=== PATIENT | female | born 1985 | race American Indian/Alaskan Native ===

== ENCOUNTER 2021-06-08 14:22 | Emergency (ER) | payer MEDICAID ==
[2021-06-08] MEDS ORDERED: SODIUM CHLORIDE 0.9% 1000 ML 1,000 ML IV ONE ×2 (14:47→18:13)
[2021-06-08] MEDS ORDERED: FAMOTIDINE 20 MG/2 ML INJ IV ONE (14:47)
[2021-06-08] MEDS ORDERED: MORPHINE 4 MG/1 ML INJ IV ONE ×2 (14:47→18:13)
[2021-06-08] MEDS ORDERED: ONDANSETRON 4 MG/2 ML INJ IV ONE ×2 (14:47→18:13)
--- NOTE | 2021-06-08 14:49 | Emergency Department Report ---
ED Abdominal Pain HPI - General Chief Complaint: Abdominal Pain Stated Complaint: ABDOMINAL PAIN Time Seen by Provider: 06/08/21 14:40 Source: EMS Mode of arrival: Wheelchair Limitations: No Limitations - History of Present Illness Initial Comments: 35-year-old female the past medical history. Cholecystectomy in 2009 presents to the hospital complaining of epigastric pain, nausea, vomiting, p.o. intolerance for the past 5 days. Patient vomiting intermittent specks of blood. Pain is moderate to severe, constant and worse with palpation. No alleviating factors reported. She denies fever or diarrhea. - Related Data Home Medications Medication Instructions Recorded Confirmed Last Taken Acetaminophen [Acetaminophen TAB] 1 - 2 tab PO Q6HR PRN 11/18/15 11/18/15 1 Week Ago ~11/11/15 Previous Rx's Medication Instructions Recorded Last Taken Type Ferrous Sulfate [Feosol 325 MG tab] 325 mg PO BID #60 tablet 11/19/15 Unknown Rx HYDROcodone/APAP 5-325 [[place] 2 each PO Q4H PRN #30 tablet 11/19/15 Unknown Rx 5-325 mg TAB] Ibuprofen [Motrin 800 MG tab] 800 mg PO Q8H PRN #30 tablet 11/19/15 Unknown Rx Vit-Fe Fumar-FA [ 1 each PO QDAY #30 tablet 11/19/15 Unknown Rx Vitamin] metroNIDAZOLE [Flagyl] 500 mg PO Q12HR 7 Days tab 04/15/18 Unknown Rx traMADoL [Ultram 50 MG tab] 50 mg PO Q6HR PRN #20 tablet 04/15/18 Unknown Rx Famotidine [Pepcid] 20 mg PO BID #20 tablet 06/08/21 Unknown Rx HYDROcodone/APAP 5-325 [[place] 1 each PO Q6HR PRN #14 tablet 06/08/21 Unknown Rx 5/325] Ondansetron [Zofran ODT TAB] 4 mg PO Q8HR PRN #20 tab.rapdis 06/08/21 Unknown Rx Allergies Allergy/AdvReac Type Severity Reaction Status Date / Time levofloxacin [From Levaquin] Allergy Hives Verified 06/08/21 14:27 ED Review of Systems ROS: Stated complaint: ABDOMINAL PAIN Other details as noted in HPI Comment: All other systems reviewed and negative ED Past Medical Hx - Past Medical History Hx Hypertension: No (grandmother, sister) Hx Congestive Heart Failure: No Hx Diabetes: No Hx Deep Vein Thrombosis: No Hx Renal Disease: No Hx Sickle Cell Disease: No Hx Headaches / Migraines: Yes Hx Seizures: No Hx Asthma: Yes (pt on inhaler) Hx COPD: No Hx HIV: No Additional medical history: 17 weeks by dates - Surgical History Hx Cholecystectomy: Yes (2008) - Social History Smoking Status: Current Every Day Smoker Substance Use Type: Marijuana - Medications Home Medications: Home Medications Medication Instructions Recorded Confirmed Last Taken Type Acetaminophen [Acetaminophen TAB] 1 - 2 tab PO Q6HR PRN 11/18/15 11/18/15 1 Week Ago History ~11/11/15 Ferrous Sulfate [Feosol 325 MG tab] 325 mg PO BID #60 tablet 11/19/15 Unknown Rx HYDROcodone/APAP 5-325 [[place] 2 each PO Q4H PRN #30 tablet 11/19/15 Unknown Rx 5-325 mg TAB] Ibuprofen [Motrin 800 MG tab] 800 mg PO Q8H PRN #30 tablet 11/19/15 Unknown Rx Vit-Fe Fumar-FA [ 1 each PO QDAY #30 tablet 11/19/15 Unknown Rx Vitamin] metroNIDAZOLE [Flagyl] 500 mg PO Q12HR 7 Days tab 04/15/18 Unknown Rx traMADoL [Ultram 50 MG tab] 50 mg PO Q6HR PRN #20 tablet 04/15/18 Unknown Rx Famotidine [Pepcid] 20 mg PO BID #20 tablet 06/08/21 Unknown Rx HYDROcodone/APAP 5-325 [[place] 1 each PO Q6HR PRN #14 tablet 06/08/21 Unknown Rx 5/325] Ondansetron [Zofran ODT TAB] 4 mg PO Q8HR PRN #20 tab.rapdis 06/08/21 Unknown Rx ED Physical Exam - General Limitations: No Limitations - Other Other exam information: General: Mild discomfort Head: Atraumatic Eyes: normal appearance ENT: Moist mucous membranes Neck: Normal appearance, no midline tenderness Chest: Clear to auscultation bilaterally CV: Regular rate and rhythm Abdomen: Soft, normal bowel sounds, epigastric tenderness, nondistended, no rebound or guarding Back: Normal inspection Extremity: Normal inspection, full range of motion Neuro: Alert O x 3, no facial asymmetry, speech clear, no gross motor sensory deficit Psych: Appropriate behavior Skin: No rash ED Course Vital Signs 06/08/21 06/08/21 06/08/21 14:24 15:49 16:00 Temperature 98.8 F Pulse Rate 60 72 Respiratory 20 12 25 H Rate Blood Pressure 128/63 Blood Pressure 143/75 [Right] O2 Sat by Pulse 100 98 Oximetry 06/08/21 06/08/21 06/08/21 16:16 16:30 16:33 Temperature Pulse Rate 53 L 56 L Respiratory 19 22 Rate Blood Pressure 128/63 128/63 Blood Pressure [Right] O2 Sat by Pulse 99 99 97 Oximetry 06/08/21 06/08/21 06/08/21 17:00 17:30 18:22 Temperature Pulse Rate 65 65 72 Respiratory 12 17 16 Rate Blood Pressure 128/63 128/63 Blood Pressure 152/88 [Right] O2 Sat by Pulse 100 98 100 Oximetry - Reevaluation(s) Reevaluation #1: 06/08/21 18:57 pt reports improved symptoms, she has received 1.5 L ns, zofran, morphine. Will d/c at completion of 2L bolus ED Medical Decision Making - Lab Data Result diagrams: 06/08/21 16:08 06/08/21 16:08 Lab Results 06/08/21 06/08/21 06/08/21 Range/Units 16:08 16:08 16:08 WBC 8.3 (4.5-11.0) K/mm3 RBC 3.74 (3.65-5.03) M/mm3 Hgb 12.6 (10.1-14.3) gm/dl Hct 37.2 (30.3-42.9) % MCV 100 H (79-97) fl MCH 34 H (28-32) pg MCHC 34 (30-34) % RDW 13.4 (13.2-15.2) % Plt Count 139 L (140-440) K/mm3 Lymph % (Auto) 37.0 H (13.4-35.0) % [place] % (Auto) 4.6 (0.0-7.3) % Eos % (Auto) 0.1 (0.0-4.3) % Baso % (Auto) 1.7 (0.0-1.8) % Lymph # (Auto) 3.1 (1.2-5.4) K/mm3 Stewart # (Auto) 0.4 (0.0-0.8) K/mm3 Eos # (Auto) 0.0 (0.0-0.4) K/mm3 Baso # (Auto) 0.1 (0.0-0.1) K/mm3 Seg Neutrophils % 56.6 (40.0-70.0) % Seg Neutrophils # 4.7 (1.8-7.7) K/mm3 Sodium 138 (137-145) mmol/L Potassium 4.4 (3.6-5.0) mmol/L Chloride 104.5 (98-107) mmol/L Carbon Dioxide 19 L (22-30) mmol/L Anion Gap 19 mmol/L BUN 13 (7-17) mg/dL Creatinine 0.6 (0.6-1.2) mg/dL Estimated GFR > 60 ml/min BUN/Creatinine Ratio 22 % Glucose 96 (65-100) mg/dL Calcium 8.9 (8.4-10.2) mg/dL Total Bilirubin 0.40 (0.1-1.2) mg/dL AST 31 (5-40) units/L ALT 18 (7-56) units/L Alkaline Phosphatase 55 (35-129) units/L Total Protein 6.2 L (6.3-8.2) g/dL Albumin 4.0 (3.9-5) g/dL Albumin/Globulin Ratio 1.8 % Lipase 13 (13-60) units/L HCG, Qual Negative (Negative) Urine Color (Yellow) Urine Turbidity (Clear) Urine pH (5.0-7.0) Ur Specific [place] (1.003-1.030) Urine Protein (Negative) mg/dL Urine Glucose (UA) (Negative) mg/dL Urine Ketones (Negative) mg/dL Urine Blood (Negative) Urine Nitrite (Negative) Urine Bilirubin (Negative) Urine Urobilinogen (<2.0) mg/dL Ur Leukocyte Esterase (Negative) Urine WBC (Auto) (0.0-6.0) /HPF Urine RBC (Auto) (0.0-6.0) /HPF 06/08/21 Range/Units Unknown WBC (4.5-11.0) K/mm3 RBC (3.65-5.03) M/mm3 Hgb (10.1-14.3) gm/dl Hct (30.3-42.9) % MCV (79-97) fl MCH (28-32) pg MCHC (30-34) % RDW (13.2-15.2) % Plt Count (140-440) K/mm3 Lymph % (Auto) (13.4-35.0) % Stewart % (Auto) (0.0-7.3) % Eos % (Auto) (0.0-4.3) % Baso % (Auto) (0.0-1.8) % Lymph # (Auto) (1.2-5.4) K/mm3 Stewart # (Auto) (0.0-0.8) K/mm3 Eos # (Auto) (0.0-0.4) K/mm3 Baso # (Auto) (0.0-0.1) K/mm3 Seg Neutrophils % (40.0-70.0) % Seg Neutrophils # (1.8-7.7) K/mm3 Sodium (137-145) mmol/L Potassium (3.6-5.0) mmol/L Chloride (98-107) mmol/L Carbon Dioxide (22-30) mmol/L Anion Gap mmol/L BUN (7-17) mg/dL Creatinine (0.6-1.2) mg/dL Estimated GFR ml/min BUN/Creatinine Ratio % Glucose (65-100) mg/dL Calcium (8.4-10.2) mg/dL Total Bilirubin (0.1-1.2) mg/dL AST (5-40) units/L ALT (7-56) units/L Alkaline Phosphatase (35-129) units/L Total Protein (6.3-8.2) g/dL Albumin (3.9-5) g/dL Albumin/Globulin Ratio % Lipase (13-60) units/L HCG, Qual (Negative) Urine Color Yellow (Yellow) Urine Turbidity Clear (Clear) Urine pH 6.0 (5.0-7.0) Ur Specific [place] 1.027 (1.003-1.030) Urine Protein 30 mg/dl (Negative) mg/dL Urine Glucose (UA) Neg (Negative) mg/dL Urine Ketones 80 (Negative) mg/dL Urine Blood Neg (Negative) Urine Nitrite Neg (Negative) Urine Bilirubin Neg (Negative) Urine Urobilinogen 2.0 (<2.0) mg/dL Ur Leukocyte Esterase Neg (Negative) Urine WBC (Auto) < 1.0 (0.0-6.0) /HPF Urine RBC (Auto) < 1.0 (0.0-6.0) /HPF - Radiology Data Radiology results: report reviewed CT ABDOMEN AND PELVIS WITH CONTRAST INDICATION / CLINICAL INFORMATION: Nausea and vomiting.. TECHNIQUE: Axial CT images were obtained through the abdomen and pelvis after 100 cc Omnipaque [address] scans at this location are performed using CT dose reduction for ALARA by means of automated exposure control. COMPARISON: None available. FINDINGS: LOWER CHEST: No significant abnormality of the imaged chest. LIVER: No significant abnormality. GALLBLADDER: Cholecystectomy. BILE DUCTS: No significant abnormality. SPLEEN: No significant abnormality. PANCREAS: No significant abnormality. ADRENALS: No significant abnormality. RIGHT KIDNEY / URETER: Multiple small 2 to 3 mm nonobstructing nephroliths. Right kidney otherwise unremarkable. LEFT KIDNEY / URETER: Small 1 to 2 mm nephroliths. No additional urolithiasis. STOMACH / DUODENUM / SMALL BOWEL: No significant abnormality. COLON: No significant abnormality. APPENDIX: No significant abnormality. PERITONEUM: No free air or free fluid are present within the abdomen or pelvis. LYMPH NODES: No significant adenopathy. AORTA / ARTERIES: No significant abnormality. IVC / VEINS: No significant abnormality. URINARY BLADDER: No significant abnormality. REPRODUCTIVE ORGANS: No significant abnormality. ADDITIONAL ABDOMINAL/PELVIC FINDINGS: None. SKELETAL SYSTEM: No significant abnormality. IMPRESSION: 1. Bilateral nonobstructing nephroliths. No acute findings within the abdomen or pelvis. - Medical Decision Making 35-year-old female presents to the hospital with epigastric pain, nausea, and vomiting. Labs unremarkable. CT abdomen pelvis unremarkable. Urine suggestive of dehydration given elevated ketones. Patient treated with IV fluids, pain medication, antiemetic, H2 sylvie with improvement of symptoms. She will be discharged with symptomatic treatment Critical Care Time: No Critical care attestation.: If time is entered above; I have spent that time in minutes in the direct care of this critically ill patient, excluding procedure time. ED Disposition Clinical Impression: Gastritis, Nausea and vomiting, Kidney stone Disposition: HOME / SELF CARE / HOMELESS Is pt being admited?: No Does the pt Need Aspirin: No Condition: Stable Instructions: Abdominal Pain (ED), Gastritis, Adult, Nausea and Vomiting, Adult, Kidney Stones, [id number] Additional Instructions: Take the medication as prescribed. Follow-up with your doctor or doctor/clinic provided. Return if symptoms worsen as indicated by your discharge instructions. Prescriptions: HYDROcodone/APAP 5-325 [[place] 5/325] 1 each PO Q6HR PRN #14 tablet PRN Reason: Pain Famotidine [Pepcid] 20 mg PO BID #20 tablet Ondansetron [Zofran ODT TAB] 4 mg PO Q8HR PRN #20 tab.rapdis PRN Reason: Nausea And Vomiting Referrals: PRIMARY CARE, [Primary Care Provider] - 3-5 Days DONALD JALLOH MD [Staff Physician] - 3-5 Days [facility] [Provider Group] - 3-5 Days Time of Disposition: 19:00
[2021-06-08 16:34] LABS: Bilirubin,Urine NEG (Negative); Blood,Urine NEG (Negative); Color,Urine Yellow (Yellow)
[2021-06-08 16:37] LABS: RBC,Urine < 1.0 /HPF (0.0-6.0); WBC,Urine < 1.0 /HPF (0.0-6.0)
[2021-06-08 16:40] LABS: Basophils # (Auto) 0.1 K/mm3 (0.0-0.1); Basophils % (Auto) 1.7 % (0.0-1.8); Eosinophils % (Auto) 0.1 % (0.0-4.3); Hematocrit 37.2 % (30.3-42.9); Hemoglobin 12.6 gm/dl (10.1-14.3); Lymphocytes # (Auto) 3.1 K/mm3 (1.2-5.4); Mean Corpuscular HGB Conc 34 % (30-34); Mean Corpuscular Volume 100 fl (79-97); Monocytes # (Auto) 0.4 K/mm3 (0.0-0.8); Monocytes % (Auto) 4.6 % (0.0-7.3); Red Blood Count 3.74 M/mm3 (3.65-5.03); Red Cell Distribution Width 13.4 % (13.2-15.2)
[2021-06-08 16:42] LABS: Platelet Count 139 K/mm3 (140-440)
[2021-06-08 17:07] LABS: Alanine Aminotransferase 18 units/L (7-56); Blood Urea Nitrogen 13 mg/dL (7-17); Calcium 8.9 mg/dL (8.4-10.2); Hemolysis Index 177
[2021-06-08 17:25] LABS: BUN/Creatinine Ratio 22
--- NOTE | 2021-06-08 18:18 | Cat Scan Report ---
CT ABDOMEN AND PELVIS WITH CONTRAST INDICATION / CLINICAL INFORMATION: Nausea and vomiting.. TECHNIQUE: Axial CT images were obtained through the abdomen and pelvis after 100 cc Omnipaque [address] scans at this location are performed using CT dose reduction for ALARA by means of automated exposure control. COMPARISON: None available. FINDINGS: LOWER CHEST: No significant abnormality of the imaged chest. LIVER: No significant abnormality. GALLBLADDER: Cholecystectomy. BILE DUCTS: No significant abnormality. SPLEEN: No significant abnormality. PANCREAS: No significant abnormality. ADRENALS: No significant abnormality. RIGHT KIDNEY / URETER: Multiple small 2 to 3 mm nonobstructing nephroliths. Right kidney otherwise un remarkable. LEFT KIDNEY / URETER: Small 1 to 2 mm nephroliths. No additional urolithiasis. STOMACH / DUODENUM / SMALL BOWEL: No significant abnormality. COLON: No significant abnormality. APPENDIX: No significant abnormality. PERITONEUM: No free air or free fluid are present within the abdomen or pelvis. LYMPH NODES: No significant adenopathy. AORTA / ARTERIES: No significant abnormality. IVC / VEINS: No significant abnormality. URINARY BLADDER: No significant abnormality. REPRODUCTIVE ORGANS: No significant abnormality. ADDITIONAL ABDOMINAL/PELVIC FINDINGS: None. SKELETAL SYSTEM: No significant abnormality. IMPRESSION: 1. Bilateral nonobstructing nephroliths. No acute findings within the abdomen or pelvis. Signer Name: Art Nobles II, MD Signed: 06/08/2021 6:13 PM Workstation Name: [id number]
[2021-06-08 19:35] VITALS: BP 133/74
== END 2021-06-08 20:03 | disposition home or self-care (01) ==
LOC: ED 14:22
DX: K29.70 Gastritis, unspecified, without bleeding (principal); R11.2 Nausea with vomiting, unspecified; N20.0 Calculus of kidney; F17.200 Nicotine dependence, unspecified, uncomplicated
CPT/HCPCS: 36415; 74177; 80053; 81001; 83690; 84703; 85025; 96361; 96374; 96375; 96376; 99284; J2270; J2405; J3490; J7030; Q9967; Q0162

== ENCOUNTER 2021-06-09 13:38 | Emergency (ER) | payer MEDICAID ==
[2021-06-09] MEDS ORDERED: PROCHLORPERAZINE EDISYLATE 10 MG/2 ML VIAL IV ONE (14:37)
[2021-06-09] MEDS ORDERED: PANTOPRAZOLE 40 MG INJ IV ONE (14:37)
[2021-06-09] MEDS ORDERED: MORPHINE 4 MG/1 ML INJ IV ONE (14:42)
--- NOTE | 2021-06-09 15:25 | Emergency Department Report ---
ED N/V/D HPI - General Chief complaint: Nausea/Vomiting/Diarrhea Stated complaint: VOMITING Time Seen by Provider: 06/09/21 14:22 Source: patient Mode of arrival: Ambulatory Limitations: No Limitations - History of Present Illness Initial comments: 36-year-old female presents to the emergency department for evaluation of nausea vomiting and epigastric pain that she states restarted today around noon time. She states that she was seen in the emergency department yesterday for same complaint and was sent home with Zofran for nausea but it did not improve her nausea today. Per evaluation of her previous chart, she was diagnosed with bilateral kidney stones and gastritis and sent home with nausea medication along with pain medication. She continues to deny fever, diarrhea, dysuria. MD complaint: nausea, vomiting, abdominal pain -: Gradual, hour(s) (3) Associated Abdominal Pain: Yes Location: epigastric Radiation: none Severity: severe Pain Scale: 10 Quality: aching, other (Burning) Consistency: constant Associated Symptoms: nausea/vomiting. denies: myalgias, chest pain, cough, diaphoresis, fever/chills, headaches, loss of appetite, malaise, rash, dysuria, shortness of breath, syncope, weakness - Related Data Home Medications Medication Instructions Recorded Confirmed Last Taken Acetaminophen [Acetaminophen TAB] 1 - 2 tab PO Q6HR PRN 11/18/15 11/18/15 1 Week Ago ~11/11/15 Previous Rx's Medication Instructions Recorded Last Taken Type Ferrous Sulfate [Feosol 325 MG tab] 325 mg PO BID #60 tablet 11/19/15 Unknown Rx HYDROcodone/APAP 5-325 [[place] 2 each PO Q4H PRN #30 tablet 11/19/15 Unknown Rx 5-325 mg TAB] Ibuprofen [Motrin 800 MG tab] 800 mg PO Q8H PRN #30 tablet 11/19/15 Unknown Rx Vit-Fe Fumar-FA [ 1 each PO QDAY #30 tablet 11/19/15 Unknown Rx Vitamin] metroNIDAZOLE [Flagyl] 500 mg PO Q12HR 7 Days tab 04/15/18 Unknown Rx traMADoL [Ultram 50 MG tab] 50 mg PO Q6HR PRN #20 tablet 04/15/18 Unknown Rx Famotidine [Pepcid] 20 mg PO BID #20 tablet 06/08/21 Unknown Rx HYDROcodone/APAP 5-325 [[place] 1 each PO Q6HR PRN #14 tablet 06/08/21 Unknown Rx 5/325] Ondansetron [Zofran ODT TAB] 4 mg PO Q8HR PRN #20 tab.rapdis 06/08/21 Unknown Rx Prochlorperazine [Compro] 25 mg RC Q8HR PRN #15 suppositor 06/09/21 Unknown Rx Allergies Allergy/AdvReac Type Severity Reaction Status Date / Time levofloxacin [From Levaquin] Allergy Hives Verified 06/08/21 14:27 ED Review of Systems ROS: Stated complaint: VOMITING Other details as noted in HPI Comment: All other systems reviewed and negative Constitutional: denies: chills, diaphoresis, fever, malaise, weakness Eyes: denies: eye pain ENT: denies: ear pain Respiratory: denies: cough, shortness of breath, SOB with exertion, SOB at rest Cardiovascular: denies: chest pain, palpitations, dyspnea on exertion, syncope, paroxysmal nocturnal dyspnea Endocrine: no symptoms reported Gastrointestinal: abdominal pain, nausea, vomiting. denies: diarrhea, constipation, hematemesis, melena, hematochezia Genitourinary: denies: urgency, dysuria, frequency, hematuria, discharge Musculoskeletal: denies: back pain, joint swelling, myalgia Skin: denies: rash, lesions, change in color, change in hair/nails, pruritus Neurological: denies: headache, weakness, numbness, paresthesias, confusion, abnormal gait Psychiatric: denies: anxiety Hematological/Lymphatic: denies: easy bleeding, easy bruising ED Past Medical Hx - Past Medical History Hx Hypertension: No (grandmother, sister) Hx Congestive Heart Failure: No Hx Diabetes: No Hx Deep Vein Thrombosis: No Hx Renal Disease: No Hx Sickle Cell Disease: No Hx Headaches / Migraines: Yes Hx Seizures: No Hx Asthma: Yes (pt on inhaler) Hx COPD: No Hx HIV: No Additional medical history: 17 weeks by dates - Surgical History Hx Cholecystectomy: Yes (2008) - Social History Smoking Status: Current Every Day Smoker Substance Use Type: Marijuana - Medications Home Medications: Home Medications Medication Instructions Recorded Confirmed Last Taken Type Acetaminophen [Acetaminophen TAB] 1 - 2 tab PO Q6HR PRN 11/18/15 11/18/15 1 Week Ago History ~11/11/15 Ferrous Sulfate [Feosol 325 MG tab] 325 mg PO BID #60 tablet 11/19/15 Unknown Rx HYDROcodone/APAP 5-325 [[place] 2 each PO Q4H PRN #30 tablet 11/19/15 Unknown Rx 5-325 mg TAB] Ibuprofen [Motrin 800 MG tab] 800 mg PO Q8H PRN #30 tablet 11/19/15 Unknown Rx Vit-Fe Fumar-FA [ 1 each PO QDAY #30 tablet 11/19/15 Unknown Rx Vitamin] metroNIDAZOLE [Flagyl] 500 mg PO Q12HR 7 Days tab 04/15/18 Unknown Rx traMADoL [Ultram 50 MG tab] 50 mg PO Q6HR PRN #20 tablet 04/15/18 Unknown Rx Famotidine [Pepcid] 20 mg PO BID #20 tablet 06/08/21 Unknown Rx HYDROcodone/APAP 5-325 [[place] 1 each PO Q6HR PRN #14 tablet 06/08/21 Unknown Rx 5/325] Ondansetron [Zofran ODT TAB] 4 mg PO Q8HR PRN #20 tab.rapdis 06/08/21 Unknown Rx Prochlorperazine [Compro] 25 mg RC Q8HR PRN #15 suppositor 06/09/21 Unknown Rx ED Physical Exam - General Limitations: No Limitations General appearance: alert, in no apparent distress - Head Head exam: Present: atraumatic, normocephalic - Eye Eye exam: Present: normal appearance. Absent: conjunctival injection - Neck Neck exam: Present: normal inspection, full ROM. Absent: tenderness - Respiratory Respiratory exam: Present: normal lung sounds bilaterally. Absent: respiratory distress, wheezes, rales, rhonchi, stridor, chest wall tenderness, accessory muscle use - Cardiovascular Cardiovascular Exam: Present: regular rate, normal heart sounds - GI/Abdominal GI/Abdominal exam: Present: soft, tenderness (Epigastric area), normal bowel sounds. Absent: distended, guarding, rebound, rigid - Extremities Exam Extremities exam: Present: normal inspection - Back Exam Back exam: Present: normal inspection, full ROM. Absent: CVA tenderness (R), CVA tenderness (L) - Neurological Exam Neurological exam: Present: alert, oriented X3 - Psychiatric Psychiatric exam: Present: normal affect, normal mood - Skin Skin exam: Present: warm, dry, intact, normal color ED Course Vital Signs 06/09/21 14:10 Temperature 98.2 F Pulse Rate 62 Respiratory 18 Rate Blood Pressure 147/60 [Right] O2 Sat by Pulse 100 Oximetry - Reevaluation(s) Reevaluation #1: 06/09/21 15:48 Patient states that nausea vomiting and abdominal pain are not improved, but she was found resting comfortably in recliner asleep and had to be shaken several times before she woke up. No acute distress noted. ED Medical Decision Making - Medical Decision Making 36-year-old female presents to the emergency department for evaluation of nausea vomiting and epigastric pain that she states restarted today around noon time. She states that she was seen in the emergency department yesterday for same complaint and was sent home with Zofran for nausea but it did not improve her nausea today. Per evaluation of her previous chart, she was diagnosed with bilateral kidney stones and gastritis and sent home with nausea medication along with pain medication. She continues to deny fever, diarrhea, dysuria. Patient looks more comfortable. No additional labs or imaging performed because patient had CAT scan yesterday that showed bilateral kidney stones with no other acute abnormalities. Labs and UA were without gross abnormalities yesterday. Patient continues to deny fever and dysuria. She was advised to continue medications as started yesterday and she was given Compazine suppositories to use as needed for nausea not improved with Zofran ODT. Patient understands plan of care. Critical care attestation.: If time is entered above; I have spent that time in minutes in the direct care of this critically ill patient, excluding procedure time. ED Disposition Clinical Impression: Epigastric pain Nausea & vomiting Qualifiers: Vomiting type: unspecified Qualified Code(s): R11.2 - Nausea with vomiting, unspecified Disposition: 01 HOME / SELF CARE / HOMELESS Is pt being admited?: No Does the pt Need Aspirin: No Condition: Stable Instructions: Gastritis, Adult, [id number], Nausea and Vomiting, Adult, [id number] Additional Instructions: Take medications as previously prescribed. Use Compazine suppositories as needed for nausea vomiting if Zofran tablets not effective. Follow-up with primary care provider. Return to the emergency department if worsening symptoms or no improvement. Prescriptions: Prochlorperazine [Compro] 25 mg RC Q8HR PRN #15 suppositor PRN Reason: Nausea And Vomiting Referrals: CIPRIANO DÍAZ MD [Staff Physician] - 3-5 Days Time of Disposition: 15:53
[2021-06-09 16:26] VITALS: BP 124/80
== END 2021-06-09 17:08 | disposition home or self-care (01) ==
LOC: ED 13:38
DX: R10.13 Epigastric pain (principal); R11.2 Nausea with vomiting, unspecified; Z88.1 Allergy status to other antibiotic agents
CPT/HCPCS: 96374; 96375; 99282; C9113; J0780; J2270